=== PATIENT | female | born 1970 | race African-American/Black ===

== ENCOUNTER 2019-10-10 17:25 | Emergency (ER) | payer MEDICAID, OTHER ==
[~2019-10-10] VITALS: Ht 177.8 cm; Wt 90.7 kg
[2019-10-11] MEDS ORDERED: LIDOCAINE W/ EPINEPHRINE 2% INJ 20ML VIAL IJ ONE (02:00)
[2019-10-11 03:00] VITALS: BP 147/89
[2019-10-11] MEDS ORDERED: ONDANSETRON HCL 4 MG/2 ML VIAL IV ONE (03:30)
[2019-10-11] MEDS ORDERED: MORPHINE SULF INJ 2 MG/ML SYRINGE 1ML IV ONE (03:30)
[2019-10-11] MEDS ORDERED: cefTRIAXone 1GM/50ML D5W 50 ML IV ONE (03:30)
== END 2019-10-11 04:24 | disposition home or self-care (01) ==
LOC: EDBD 17:25 → ER 17:33
DX: S01.311A Laceration without foreign body of right ear, initial encounter (principal); H61.111 Acquired deformity of pinna, right ear; Y04.2XXA Assault by strike against or bumped into by another person, initial encounter; Y93.89 Activity, other specified; Y92.89 Other specified places as the place of occurrence of the external cause; Y99.8 Other external cause status
CPT/HCPCS: 12011; 70450; 72125; 81025; 96365; 96375; 99284; J0696; J2270; J2405